=== PATIENT | female | born 1975 | race Caucasian/White ===

== ENCOUNTER → 2017-08-03 | Outpatient (CLI) | payer BC ==
--- NOTE | 2017-08-03 08:51 | MR ---
EXAMINATION TYPE: MR iac wo/w con DATE OF EXAM: 08/03/2017 6:39 AM COMPARISON: NONE HISTORY: Hearing loss TECHNIQUE: Multiplanar and multispin-echo imaging of the brain was performed both before and after the administr ation of contrast. High-resolution images are obtained of the internal auditory canals performed uti lizing 7.5 mL intravenous Gadavist contrast. The ventricles, basal cisterns and sulci overlying the cerebral convexities are within normal limits. There is no evidence for midline shift or mass effect. Acute intracranial hemorrhage or extra-axial collection is not evident. There are no abnormal areas of increased or decreased signal intensity within the brain parenchyma. High-resolution imaging of the internal auditory canals fails demonstrate evidence for an enhancing a coustic schwannoma or cerebellopontine cistern angle mass. Following contrast administration, there is no evidence for pathologic enhancement or enhancing mass. The mastoid air cells are well-aerated. Mucous retention cyst. IMPRESSION: 1. No evidence of acoustic schwannoma or cerebellopontine angle mass.
== END | disposition home or self-care (01) ==
LOC: RADMRIMAIN 05:58
PROVIDERS: ATTEND Otolaryngology
DX: H93.19 Tinnitus, unspecified ear (principal)
CPT/HCPCS: 70553; A9581

== ENCOUNTER → 2023-12-19 | Outpatient (CLI) | payer BC ==
--- NOTE | 2023-12-19 16:14 | XR ---
EXAMINATION TYPE: XR foot complete bilateral DATE OF EXAM: 12/19/2023 COMPARISON: None HISTORY: Plantar fascial fibromatosis TECHNIQUE: 3 views bilateral feet FINDINGS: No acute fractures or dislocations are evident. Joint spaces are preserved. Small plantar c alcaneal heel spurs on the left foot. Minimal plantar calcaneal heel spur is on the right foot. Follow up exams can be performed 7-10 days from acute trauma for continued pain. IMPRESSION: 1. Left plantar calcaneal heel spur
== END | disposition home or self-care (01) ==
LOC: RADXRYALE 13:20
PROVIDERS: ATTEND Internal Medicine
DX: M72.2 Plantar fascial fibromatosis (principal); M77.32 Calcaneal spur, left foot